=== PATIENT | male | born 1955 | race Caucasian/White ===

== ENCOUNTER 2021-10-07 06:57 | Day surgery (SDC) | payer BC ==
[2021-10-07] VITALS (10 sets, daily range): BP systolic 99–123; BP diastolic 72–82
[~2021-10-07] VITALS: Ht 185.4 cm; Wt 88.0 kg
[~2021-10-07 06:57] MED LIST: ASPI-543 PO; ATOR80TA PO; LISI2.5T47 PO; METO25TA5 PO
[2021-10-07] MEDS ORDERED: LIDOCAINE 2%HCL (LOCAL ANESTH.) INJ 10ml MDV ONE (07:22)
[2021-10-07] MEDS ORDERED: fentaNYL CITRATE 100 MCG/2 ML VL ONE (07:39)
[2021-10-07] MEDS ORDERED: SODIUM CHL 0.9% 0 ML ONE (07:39)
[2021-10-07] MEDS ORDERED: HEPARIN SODIUM (PORCINE) 5000 UNITS/ML 1ML VIAL ONE (07:39)
[2021-10-07] MEDS ORDERED: MIDAZOLAM HCL 2MG/2ML 2ml VIAL (1mg/ml) ONE (07:39)
[2021-10-07] MEDS ORDERED: VERAPAMIL 2.5MG/ML INJ 2ML VIAL IV ONE (07:39)
[2021-10-07] MEDS ORDERED: ANGIOMAX 250 MG VIAL IV ONE (07:39)
[2021-10-07] MEDS ORDERED: IODIXANOL 320MG/ML 100ML BTL IV ONE (07:46)
== END 2021-10-07 11:05 | disposition home or self-care (01) ==
LOC: CATH 06:57
PROVIDERS: ATTEND Internal Medicine Cardiovascular Disease
DX: R94.39 Abnormal result of other cardiovascular function study (principal)
CPT/HCPCS: 93458; C1769; C1887; C1894; J1644; J2001; J2250; J3010; J7040; Q9967; U0003; 99152